=== PATIENT | male | born 1955 | race Caucasian/White ===

== ENCOUNTER 2019-08-05 08:47 | Day surgery (SDC) | payer OTHER ==
[~2019-08-05 08:47] MED LIST: Lactated Ringers 1,000 ML IV SCH
[2019-08-05] MEDS ORDERED: fentaNYL 100 MCG/2 ML SDV IV ONE (08:48)
[2019-08-05] MEDS ORDERED: Propofol 200 MG/20 ML SDV IV ONE (08:48)
[2019-08-05] MEDS ORDERED: Ondansetron 4 MG/2 ML SDV IV ONE (08:48)
[2019-08-05] MEDS ORDERED: Glycopyrrolate 0.2 MG/ML 2 ML SDV IV ONE (08:48)
[2019-08-05] MEDS ORDERED: Midazolam 1 MG/ML 2 ML SDV IV ONE (08:48)
[2019-08-05] MEDS ORDERED: ceFAZolin 2 GM in Premix Bag 1 BAG IV ONE (10:37)
[2019-08-05] MEDS ORDERED: Lidocaine 1% with EPINEPHrine 1:100,000 20 ML MDV ONE (11:57)
[2019-08-05] MEDS ORDERED: Ondansetron 4 MG/2 ML SDV IVPUSH PRN (12:28)
[2019-08-05] MEDS ORDERED: Morphine 2 MG/ML Syringe IVPUSH PRN (12:28)
[2019-08-05] MEDS ORDERED: Sodium Chloride 0.9% 10 ML Syringe FLUSH PRN (12:35)
[2019-08-05] MEDS ORDERED: LORazepam 1 MG Tab**OWN MED PO PRN (15:28)
[2019-08-05] MEDS ORDERED: DIAZEPAM 5 MG PO PRN (15:39)
[2019-08-05] MEDS ORDERED: Carbidopa/Levodopa 25-100 MG Tab.ER PO SCH (17:00)
[2019-08-05] MEDS: LEVODOPA PO SCH ×3 (17:43→21:05)
[2019-08-05] MEDS: CARBIDOPA PO SCH ×3 (17:43→21:05)
--- NOTE | 2019-08-05 18:03 | OR ---
DATE: 08/05/2019 PREOPERATIVE DIAGNOSIS: Left inguinal hernia. POSTOPERATIVE DIAGNOSIS: Left inguinal hernia. PROCEDURE: Open repair of left indirect inguinal hernia. ANESTHESIA: General. ESTIMATED BLOOD LOSS: Minimum. SPECIMEN: Hernia sac. FINDINGS: Indirect left inguinal hernia. INDICATION FOR PROCEDURE: This is a 64-year-old male who has had bilateral inguinal hernias. He previously had the right side repaired, the left side now is enlarged and symptomatic. PROCEDURE IN DETAIL: After adequate preparation, a transverse incision was made over the left groin and this was taken down to the external abdominal oblique. This was opened in the direction of the fibers to expose the hernia sac in the inguinal canal. The ilioinguinal nerve was identified and traced back up to the anterior superior iliac spine where the nerve was severed at that level. The hernia sac and cord were brought up out of the inguinal canal and the hernia sac dissected free from the cord structures down to the deep inguinal ring. This was then suture ligated, closed. A pre-cut piece of mesh was placed over the groin and sewn in place using 2-0 Prolene suture in a running fashion along the inguinal ligament and interrupted along the rectus sheath. The cord was brought through the keyhole of the mesh and was in adequate position. The lateral tails of the mesh were sewn in place and then closed, sutured to each other to close off the ring. The cord was placed in the inguinal canal. External abdominal oblique and Charity's fascia were closed with Vicryl suture and Monocryl for the skin. [facility] /[id number]
[2019-08-05] MEDS ORDERED: CARBIDOPA PO SCH (21:00)
[2019-08-05] MEDS ORDERED: LEVODOPA PO SCH (21:00)
[2019-08-05] MEDS: AMANTADINE 100 MG PO SCH (21:06)
[2019-08-05] MEDS: Acetaminophen/oxyCODONE 325-5 MG Tab PO PRN (21:11)
[2019-08-06] MEDS: Acetaminophen/oxyCODONE 325-5 MG Tab PO PRN (02:20)
[2019-08-06] MEDS: AMANTADINE 100 MG PO SCH (02:48)
[2019-08-06] MEDS: CARBIDOPA PO SCH ×2 (05:16→08:23)
[2019-08-06] MEDS: LEVODOPA PO SCH ×2 (05:16→08:23)
[2019-08-06 08:06] VITALS: BP 112/61; PULSE 75
--- NOTE | 2019-08-06 08:42 | PCM.SN ---
- Free Text/Narrative Note: Stable POD #1. VSS. Pain controlled. PO good. Wound clean and dry. Can discharge. No restrictions. Only need FU is patient has concerns. Percocet (# 10) given for pain.
== END 2019-08-06 09:35 | disposition home or self-care (01) ==
LOC: DL.SDS 08:47 → DL.MS 12:28 → DL.SDS 08-06 09:35
PROVIDERS: ATTEND Surgery
DX: K40.90 Unilateral inguinal hernia, without obstruction or gangrene, not specified as recurrent (principal)
CPT/HCPCS: 49505; A9270; C1781; J0690; J2250; J2405; J2704; J3010; J3490; J7120

== ENCOUNTER 2020-05-21 11:18 | Emergency (ER) | payer OTHER ==
--- NOTE | 2020-05-21 11:26 | EDM.PDOC ---
ED HPI GENERAL MEDICAL PROBLEM - General Chief Complaint: Gastrointestinal Problem Stated Complaint: parkinsons diarrhea constipation Time Seen by Provider: 05/21/20 11:26 Source of Information: Reports: Patient, RN, RN Notes Reviewed History Limitations: Reports: No Limitations - History of Present Illness INITIAL COMMENTS - FREE TEXT/NARRATIVE: Pt presents to ER with c/o constipation and having loose watery stools that he believes is passing around the hard stool since yesterday. Has had similar problem in the past. He states his Parkinson medications cause constipation, but he cannot go without taking them. Denies current abdominal pain. He admits to some nausea on/off, but not currently. He does admit to abdominal cramping associated with urges to have BMs. Denies fever, cough, or any COVID exposures. Onset: Gradual Duration: Constant, Getting Worse Location: Reports: Abdomen Quality: Reports: Other (Cramping) Severity: Moderate Improves with: Reports: None Worsens with: Reports: None Associated Symptoms: Reports: No Other Symptoms - Related Data Allergies Allergy/AdvReac Type Severity Reaction Status Date / Time No Known Allergies Allergy Verified 05/21/20 11:37 Home Meds: Home Meds Carbidopa/Levodopa [Carbidopa-Levo ER 50-200 Tab] 50 - 200 mg PO QID 04/01/16 [History] Carbidopa/Levodopa [Carbidopa-Levodopa 25-250] 25 - 250 mg PO .5TIMESDAILY 04/01/16 [History] LORazepam 1 - 2 tab PO .NIGHTLY PRN 04/01/16 [History] Pramipexole [Mirapex] 1 tab PO TID 04/01/16 [History] Aspirin [Halfprin] 81 mg PO DAILY 04/30/16 [History] Multivitamin [Multi-Day Vitamins] 1 tab PO DAILY 04/30/16 [History] Sildenafil [Viagra] 100 mg PO DAILY 04/30/16 [History] amantadine HCL [Amantadine] 100 mg PO TID 04/30/16 [History] diazePAM [Valium] 10 mg PO BEDTIME 08/03/19 [History] Past Medical History HEENT History: Reports: Other (See Below) Other HEENT History: READING GLASSES Cardiovascular History: Reports: High Cholesterol, Hypertension Respiratory History: Reports: None Gastrointestinal History: Reports: Other (See Below) Other Gastrointestinal History: INGUINAL HERNIA left. Genitourinary History: Reports: None [employer] History: Musculoskeletal History: Reports: Back Pain, Chronic, Fracture, Other (See Below) Other Musculoskeletal History: LEFT WRIST FRACTURE; BUNION LEFT Neurological History: Reports: Parkinson's, Speech Problems Psychiatric History: Reports: None Endocrine/Metabolic History: Reports: None Hematologic History: Reports: Other (See Below) Other Hematologic History: HYPOKALEMIA Immunologic History: Reports: None Oncologic (Cancer) History: Reports: None Dermatologic History: Reports: None - Infectious Disease History Infectious Disease History: Reports: Chicken Pox, Measles, Mumps - Past Surgical History Head Surgeries/Procedures: Reports: None HEENT Surgical History: Reports: Tonsillectomy Cardiovascular Surgical History: Reports: None GI Surgical History: Reports: Colonoscopy, Hernia Repair/Other Other GI Surgeries/Procedures: HX OF RIGHT SIDE INGUINAL HERNIA REPAIR Male Surgical History: Reports: None Musculoskeletal Surgical History: Reports: None Social & Family History - Family History HEENT: Reports: Cataract Cardiac: Reports: None Respiratory: Reports: None GI: Reports: None : Reports: Renal Calculus OBGYN: Reports: None Musculoskeletal: Reports: Fibromyalgia Neurological: Reports: CVA, Parkinson's Psychiatric: Reports: None Endocrine/Metabolic: Reports: Diabetes, type II Hematologic: Reports: None Immunologic: Reports: None Dermatologic: Reports: None Oncologic: Reports: None - Caffeine Use Caffeine Use: Reports: Soda Caffeine Use Comment: 1 can daily - Living Situation & Occupation Living situation: Reports: , with Spouse Occupation: Disabled ED ROS GENERAL - Review of Systems Review Of Systems: Comprehensive ROS is negative, except as noted in HPI. ED EXAM, GI/ABD - Physical Exam Exam: See Below Exam Limited By: No Limitations General Appearance: Alert, No Apparent Distress, Other (Chronically ill appearing) Eyes: Bilateral: Normal Appearance (No scleral icterus) Ears: Hearing Grossly Normal Throat/Mouth: Normal Inspection, Normal Voice, No Airway Compromise Head: Atraumatic, Normocephalic Respiratory/Chest: No Respiratory Distress, Lungs Clear Cardiovascular: Regular Rate, Rhythm GI/Abdominal Exam: Soft, Non-Tender, No Distention, No Abnormal Bruit, No Mass, Abnormal Bowel Sounds (Mildly hyperactive). No: Guarding, Rigid (Male) Exam: Deferred Rectal (Males) Exam: Deferred Back Exam: Normal Inspection Extremities: Normal Inspection Neurological: Alert, Oriented, Other (Tremor consistent with Hx of Parkinsons disease) Psychiatric: Normal Mood Skin Exam: Warm, Dry, Intact, Normal Color Course - Vital Signs Last Recorded V/S: Last Vital Signs Temp 98.1 F 05/21/20 11:38 Pulse 81 05/21/20 11:38 Resp 18 05/21/20 11:38 BP 95/47 L 05/21/20 11:38 Pulse Ox 97 05/21/20 11:38 - Orders/Labs/Meds Orders: Active Orders 24 hr Category Date Time Status Enema [RC] ASDIRECTED Care 05/21/20 12:19 Active Meds: Medications Discontinued Medications Generic Name Dose Route Start Last Admin Trade Name Freq PRN Reason Stop Dose Admin Bisacodyl 10 mg 05/21/20 12:18 05/21/20 12:47 Dulcolax PO 05/21/20 12:19 10 mg ONETIME ONE Administration Lactulose 30 gm 05/21/20 12:19 05/21/20 12:26 Cephulac PO 05/21/20 12:20 30 gm ONETIME ONE Administration Magnesium Citrate 148 ml 05/21/20 14:29 05/21/20 14:57 Citrate Of Magnesia PO 05/21/20 14:30 148 ml ONETIME ONE Administration - Radiology Interpretation Free Text/Narrative:: [facility] Final Radiology Report Call: [phone] assistance Online chat: [email or web address] Name: IRVING VELAZQUEZ Age: 65Years M Date: 05/21/2020 SSN: -- : 1955 Study: CR ABDOMEN 2V AP UPRIGHT DECUB Requesting Physician: CHRISTY RAHMAN Images: 4 Addl Studies: Provided Clinical History: suspected constipation Contrast: Contrast Medium: Contrast Amount: Contrast Method: CONFIDENTIALITY STATEMENT This report is intended only for use by the referring physician, and only in accordance with law. If you received this in error, call [phone]. Page 1 of 1 PROCEDURE INFORMATION: Exam: XR Abdomen, 2 Views Exam date and time: 05/21/2020 11:58 AM Age: 65 years old Clinical indication: Constipation; Additional info: Suspected constipation TECHNIQUE: Imaging protocol: XR of the abdomen. Views: 2 Views. COMPARISON: No relevant prior studies available. FINDINGS: Gastrointestinal tract: Will moderate amount of stool is present within the colon. Mild constipation is possible. No obstruction identified. Intraperitoneal space: Normal. No free air. Bones/joints: Unremarkable for age. IMPRESSION: Mild constipation without obstruction. Thank you for allowing us to participate in the care of your patient. Dictated and Authenticated by: Chandler Bowman MD 05/21/2020 12:17 PM Central Time ([place] & [place]) Departure - Departure Time of Disposition: 15:35 Disposition: Home, Self-Care 01 Condition: Good Clinical Impression: Constipation Qualifiers: Constipation type: unspecified constipation type Qualified Code(s): K59.00 - Constipation, unspecified - Discharge Information *PRESCRIPTION DRUG MONITORING PROGRAM REVIEWED*: Not Applicable *COPY OF PRESCRIPTION DRUG MONITORING REPORT IN PATIENT DOROTEO: Not Applicable Instructions: Constipation, Adult, [id number] Forms: ED Department Discharge Additional Instructions: Drink half bottle of Magnesium Citrate this evening at 7:00PM if you have not had a bowel movement by then. May repeat and drink the second half bottle in the morning (May.22) if needed. Rx: Lactulose Syrup for future as needed use for constipation. Follow up with your primary doctor if constipation continues to be a problem. Sepsis Event Note (ED) - Focused Exam Vital Signs: Vital Signs Temp Pulse Resp BP Pulse Ox 05/21/20 11:38 98.1 F 81 18 95/47 L 97 - My Orders Last 24 Hours: My Active Orders 05/21/20 12:19 Enema [RC] ASDIRECTED - Assessment/Plan Last 24 Hours: My Active Orders 05/21/20 12:19 Enema [RC] ASDIRECTED
[2020-05-21 11:40] VITALS: BP 95/47; PULSE 81
--- NOTE | 2020-05-21 12:17 | CR ---
PROCEDURE INFORMATION: Exam: XR Abdomen, 2 Views Exam date and time: 05/21/2020 11:58 AM Age: 65 years old Clinical indication: Constipation; Additional info: Suspected constipation TECHNIQUE: Imaging protocol: XR of the abdomen. Views: 2 Views. COMPARISON: No relevant prior studies available. FINDINGS: Gastrointestinal tract: Will moderate amount of stool is present within the colon. Mild constipation is possible. No obstruction identified. Intraperitoneal space: Normal. No free air. Bones/joints: Unremarkable for age. IMPRESSION: Mild constipation without obstruction.
[2020-05-21] MEDS ORDERED: Bisacodyl 5 MG Tab PO ONE (12:18)
[2020-05-21] MEDS ORDERED: Lactulose Soln 10 GM/15 ML 30 ML UD Cup PO ONE (12:19)
[2020-05-21] MEDS ORDERED: Magnesium Citrate Solution 296 ML Bottle PO ONE ×2 (14:29→15:37)
== END 2020-05-21 15:55 | disposition home or self-care (01) ==
LOC: DL.ED 11:18
DX: K59.03 Drug induced constipation (principal); T50.905A Adverse effect of unspecified drugs, medicaments and biological substances, initial encounter; I10 Essential (primary) hypertension; G20 Parkinson's disease; Z79.899 Other long term (current) drug therapy; Z79.82 Long term (current) use of aspirin
CPT/HCPCS: 74021; 99283; A9270

== ENCOUNTER 2023-01-25 19:15 | Emergency (ER) | payer MEDICARE, BC ==
[2023-01-25 20:01] VITALS: BP 124/73; PULSE 68
[2023-01-25] MEDS ORDERED: Lidocaine 1% 5 ML VIAL INJECT ONE (20:05)
[2023-01-25] MEDS ORDERED: Bacitracin Oint 1 GM U/D Packet TOP ONE (20:05)
[2023-01-25] MEDS ORDERED: Diphtheria,Pertussis(Acell),Tetanus Vaccine 0.5 ML Syringe IM ONE (20:06)
== END 2023-01-25 20:59 | disposition home or self-care (01) ==
LOC: DL.ED 19:15
DX: S01.81XA Laceration without foreign body of other part of head, initial encounter (principal); Z23 Encounter for immunization; Z86.16 Personal history of COVID-19; Z79.899 Other long term (current) drug therapy; W01.198A Fall on same level from slipping, tripping and stumbling with subsequent striking against other object, initial encounter; Y92.009 Unspecified place in unspecified non-institutional (private) residence as the place of occurrence of the external cause
CPT/HCPCS: 12011; 90471; 90715; 99282; 99283; A9270; J3490

== ENCOUNTER 2024-04-08 09:41 | Inpatient (IN) | payer MEDICARE, BC ==
[2024-04-08 10:29] LABS: BASOPHILS PERCENT AUTO 0.1 % (0.0-1.0); EOSINOPHILS PERCENT AUTO 0.2 % (1.0-3.0); HEMATOCRIT 33.2 % (40.0-54.0); HEMOGLOBIN 10.5 g/dL (14.0-18.0); LYMPHOCYTES PERCENT AUTO 6.2 % (20.5-50.1); MEAN CORPUSCULAR HEMOGLOBIN 31.8 pg (27.0-34.0); MEAN CORPUSCULAR HGB CONC 31.6 g/dL (33.0-35.0); MEAN CORPUSCULAR VOLUME 100.6 fL (80-100); MONOCYTES PERCENT AUTO 9.9 % (2-8); NEUTROPHILS PERCENT AUTO 83.6 % (42.2-75.2); PLATELET COUNT,PLT 269 10^3/uL (150-450)
[2024-04-08 10:47] LABS: INR 1.1 (0.9-1.2); PROTHROMBIN TIME 11.2 SEC (9.0-12.0)
[2024-04-08 10:49] LABS: ALBUMIN 2.5 g/dL (3.4-5.0); ALKALINE PHOSPHATASE 54 U/L (46-116); ANION GAP 8.2 mEq/L (7-13); ASPARTATE AMNIOTRANSFERASE,AST 12 U/L (15-37); BILIRUBIN TOTAL 0.8 mg/dL (0.2-1.0); BLOOD UREA NITROGEN,BUN 28 mg/dL (7-18); BUN/CREATININE RATIO 28.9 (No establ ref range); C-REACTIVE PROTEIN 16.08 ng/dL (<=0.50); CALCIUM 8.3 mg/dL (8.5-10.1); CARBON DIOXIDE,CO2 33 mmol/L (21-32); CHLORIDE,CL 101 mmol/L (98-107); CREATININE 0.97 mg/dL (0.70-1.30); GLUCOSE RANDOM 105 mg/dL (70-99); POTASSIUM,K 4.2 mmol/L (3.5-5.1); SODIUM,NA 138 mmol/L (136-145)
[2024-04-08 10:52] LABS: A/G RATIO 0.56; ALANINE AMINOTRANSFERASE,ALT < 6 U/L (16-63); ESTIMATED GFR 86 mL/min (>=60)
[2024-04-08 10:55] LABS: B-TYPE NATRIURETIC PEPTIDE,BNP 239 pg/ml (0-100)
[2024-04-08] MEDS: Sodium Chloride 0.9% 500 ML IV ONE (11:08)
[2024-04-08] MEDS: ceFAZolin 2 GM Vial IVPUSH ONE (11:08)
[2024-04-08] MEDS: Iopamidol 612 MG/ML 100 ML Bottle IVPUSH ONE (11:59)
[2024-04-08] MEDS ORDERED: Magnesium Hydroxide 400 MG/5 ML Susp 30 ML Cup PO PRN (13:38)
[2024-04-08] MEDS ORDERED: Bisacodyl 5 MG Tab PO PRN (13:38)
[2024-04-08] MEDS ORDERED: Ondansetron 4 MG/2 ML SDV IVPUSH PRN (13:38)
[2024-04-08] MEDS ORDERED: Albuterol/Ipratropium 3.0-0.5 MG/3 ML Neb Soln NEB PRN (13:38)
[2024-04-08] MEDS ORDERED: Melatonin 3 MG Tab PO PRN (13:38)
[2024-04-08] MEDS ORDERED: HYDROmorphone 0.5 MG/0.5 ML Syringe IVPUSH PRN (13:38)
[2024-04-08] MEDS ORDERED: Naloxone 2 MG/2 ML Syringe IVPUSH PRN (13:38)
[2024-04-08] MEDS ORDERED: Polyethylene Glycol 3350 Powder 17 GM Packet PO PRN (13:38)
[2024-04-08] MEDS ORDERED: Acetaminophen/oxyCODONE 325-5 MG Tab PO PRN (13:38)
[2024-04-08] MEDS ORDERED: Sodium Chloride 0.9% 100 ML IV PRN (14:19)
[2024-04-08] MEDS: Albumin Human 25 GM in Premix Bag 1 BAG IV SCH (14:34)
[2024-04-08] MEDS: Cefepime 2 GM Vial IVPUSH ONE (14:36)
[2024-04-08 14:40] LABS: APPEARANCE,URINE CLEAR (CLEAR); BILIRUBIN,URINE NEGATIVE (NEGATIVE); COLOR,URINE YELLOW (YELLOW); GLUCOSE,URINE NEGATIVE (NEGATIVE); KETONES,URINE 15 (NEGATIVE); LEUKOCYTE ESTERASE,URINE NEGATIVE (NEGATIVE); NITRITE,URINE NEGATIVE (NEGATIVE); OCCULT BLOOD,URINE NEGATIVE (NEGATIVE); PROTEIN,URINE 30 (NEGATIVE)
[2024-04-08 15:22] LABS: BACTERIA,URINE RARE /HPF (0-FEW/HPF); EPITHELIAL CELLS,URINE RARE /HPF (NOT SEEN); MUCUS,URINE OCCASIONAL /LPF (NOT SEEN); RBC,URINE 0-5 /HPF (0-5); WBC,URINE 0-5 /HPF (0-5/HPF)
[2024-04-08] MEDS ORDERED: Carbidopa/Levodopa 25-100 MG Tab PO SCH (15:23)
[2024-04-08] MEDS: Carbidopa/Levodopa 25-100 MG Tab PO SCH ×3 (16:08→21:25)
[2024-04-08] MEDS ORDERED: Divalproex Sodium Delayed-Release 250 MG Tab.CR PO SCH (18:00)
[2024-04-08] MEDS: Sodium Chloride 0.9% 10 ML Syringe FLUSH PRN (21:24)
[2024-04-08] MEDS: Acetaminophen 325 MG Tab PO PRN (21:25)
[2024-04-08] MEDS: Saccharomyces Boulardii (Probiotic) 250 MG Cap PO SCH (21:25)
[2024-04-08] MEDS: Divalproex Sodium Delayed-Release 250 MG Tab.CR PO SCH (21:26)
[2024-04-08] MEDS: Bacitracin/Neomycin/Polymyxin B Oint 28.4 GM Tube TOP SCH (21:26)
[2024-04-08] MEDS: Sodium Chloride 0.9% 100 ML IV PRN (23:30)
[2024-04-09] MEDS: Cefepime 2 GM Vial IVPUSH SCH (01:41)
[2024-04-09] MEDS: Carbidopa/Levodopa 25-100 MG Tab PO SCH ×2 (04:49→10:56)
[2024-04-09 06:48] LABS: BASOPHILS PERCENT AUTO 0.2 % (0.0-1.0); EOSINOPHILS PERCENT AUTO 3.3 % (1.0-3.0); HEMATOCRIT 27.3 % (40.0-54.0); HEMOGLOBIN 8.6 g/dL (14.0-18.0); LYMPHOCYTES PERCENT AUTO 11.3 % (20.5-50.1); MEAN CORPUSCULAR HEMOGLOBIN 31.6 pg (27.0-34.0); MEAN CORPUSCULAR HGB CONC 31.5 g/dL (33.0-35.0); MEAN CORPUSCULAR VOLUME 100.4 fL (80-100); MONOCYTES PERCENT AUTO 7.5 % (2-8); NEUTROPHILS PERCENT AUTO 77.7 % (42.2-75.2); PLATELET COUNT,PLT 240 10^3/uL (150-450); RED BLOOD CELL COUNT 2.72 10^6/uL (4.6-6.2); WHITE BLOOD CELL COUNT,WBC 6.4 10^3/uL (5.0-10.0)
[2024-04-09 07:11] LABS: ALBUMIN 2.6 g/dL (3.4-5.0); ANION GAP 10.6 mEq/L (7-13); BILIRUBIN TOTAL 0.7 mg/dL (0.2-1.0); C-REACTIVE PROTEIN 13.58 ng/dL (<=0.50); CALCIUM 7.8 mg/dL (8.5-10.1); CREATININE 0.75 mg/dL (0.70-1.30); EST CRCL DRUG DOSING (CG) 101.61 mL/min; MAGNESIUM 1.9 mg/dL (1.8-2.4); POTASSIUM,K 3.6 mmol/L (3.5-5.1)
[2024-04-09 07:12] LABS: A/G RATIO 0.76
[2024-04-09] MEDS: Magnesium Oxide 400 MG Tab PO SCH (08:10)
[2024-04-09] MEDS ORDERED: Enoxaparin 30 MG/0.3 ML Syringe SUBCUT SCH (09:00)
[2024-04-09] MEDS: Donepezil 10 MG Tab PO SCH (09:20)
[2024-04-09] MEDS: Aspirin 81 MG Tab.EC PO SCH (09:20)
[2024-04-09] MEDS: Oxybutynin 5 MG Tab.ER PO SCH (09:20)
[2024-04-09] MEDS: Multivitamin Tab PO SCH (09:20)
[2024-04-09] MEDS: Enoxaparin 40 MG/0.4 ML Syringe SUBCUT SCH (09:28)
[2024-04-09] MEDS: Iopamidol 755 Mg/ML 100 ML Bottle IVPUSH ONE (13:51)
[2024-04-09] MEDS: Sodium Chloride 0.9% 1,000 ML IV SCH (14:23)
[2024-04-09] MEDS: Furosemide 40 MG/4 ML VIAL IVPUSH ONE (20:27)
[2024-04-10 06:41] LABS: EOSINOPHILS PERCENT AUTO 10.7 % (1.0-3.0); HEMATOCRIT 29.7 % (40.0-54.0); HEMOGLOBIN 9.4 g/dL (14.0-18.0); LYMPHOCYTES PERCENT AUTO 11.4 % (20.5-50.1); MEAN CORPUSCULAR HEMOGLOBIN 31.4 pg (27.0-34.0); MEAN CORPUSCULAR HGB CONC 31.6 g/dL (33.0-35.0); MEAN CORPUSCULAR VOLUME 99.3 fL (80-100); MONOCYTES PERCENT AUTO 9.1 % (2-8); NEUTROPHILS PERCENT AUTO 68.8 % (42.2-75.2); PLATELET COUNT,PLT 264 10^3/uL (150-450); RED BLOOD CELL COUNT 2.99 10^6/uL (4.6-6.2)
[2024-04-10 07:06] LABS: ALBUMIN 3.2 g/dL (3.4-5.0); ANION GAP 8.2 mEq/L (7-13); BILIRUBIN TOTAL 0.7 mg/dL (0.2-1.0); BUN/CREATININE RATIO 20.5 (No establ ref range); C-REACTIVE PROTEIN 9.15 ng/dL (<=0.50); CREATININE 0.73 mg/dL (0.70-1.30); EST CRCL DRUG DOSING (CG) 104.39 mL/min; POTASSIUM,K 3.2 mmol/L (3.5-5.1); PROTEIN TOTAL,TP 6.6 g/dL (6.4-8.2)
[2024-04-10 07:16] LABS: A/G RATIO 0.94
[2024-04-10] MEDS: Potassium Chloride 10 MEQ Tab.ER PO ONE (10:56)
[2024-04-11 06:41] LABS: BASOPHILS PERCENT AUTO 0.2 % (0.0-1.0); EOSINOPHILS PERCENT AUTO 13.9 % (1.0-3.0); HEMATOCRIT 29.8 % (40.0-54.0); HEMOGLOBIN 9.5 g/dL (14.0-18.0); LYMPHOCYTES PERCENT AUTO 14.6 % (20.5-50.1); MEAN CORPUSCULAR HEMOGLOBIN 31.7 pg (27.0-34.0); MEAN CORPUSCULAR HGB CONC 31.9 g/dL (33.0-35.0); MEAN CORPUSCULAR VOLUME 99.3 fL (80-100); MONOCYTES PERCENT AUTO 9.4 % (2-8); NEUTROPHILS PERCENT AUTO 61.9 % (42.2-75.2); PLATELET COUNT,PLT 262 10^3/uL (150-450); WHITE BLOOD CELL COUNT,WBC 4.7 10^3/uL (5.0-10.0)
[2024-04-11 07:36] LABS: A/G RATIO 1.1; ALBUMIN 3.6 g/dL (3.4-5.0); ANION GAP 8.6 mEq/L (7-13); BILIRUBIN TOTAL 0.7 mg/dL (0.2-1.0); BUN/CREATININE RATIO 25.4 (No establ ref range); C-REACTIVE PROTEIN 5.76 ng/dL (<=0.50); CALCIUM 8.4 mg/dL (8.5-10.1); CREATININE 0.63 mg/dL (0.70-1.30); EST CRCL DRUG DOSING (CG) 120.96 mL/min; MAGNESIUM 2.1 mg/dL (1.8-2.4); POTASSIUM,K 3.6 mmol/L (3.5-5.1); PROTEIN TOTAL,TP 6.9 g/dL (6.4-8.2)
[2024-04-11] MEDS: Furosemide 20 MG/2 ML VIAL IVPUSH ONE (10:28)
[2024-04-12 06:34] LABS: BASOPHILS PERCENT AUTO 0.2 % (0.0-1.0); EOSINOPHILS PERCENT AUTO 10.8 % (1.0-3.0); HEMATOCRIT 31.7 % (40.0-54.0); HEMOGLOBIN 10.2 g/dL (14.0-18.0); LYMPHOCYTES PERCENT AUTO 16.6 % (20.5-50.1); MEAN CORPUSCULAR HEMOGLOBIN 31.8 pg (27.0-34.0); MEAN CORPUSCULAR HGB CONC 32.2 g/dL (33.0-35.0); MEAN CORPUSCULAR VOLUME 98.8 fL (80-100); MONOCYTES PERCENT AUTO 11.7 % (2-8); NEUTROPHILS PERCENT AUTO 60.7 % (42.2-75.2); PLATELET COUNT,PLT 288 10^3/uL (150-450); RED BLOOD CELL COUNT 3.21 10^6/uL (4.6-6.2); WHITE BLOOD CELL COUNT,WBC 4.7 10^3/uL (5.0-10.0)
[2024-04-12 07:46] LABS: A/G RATIO 1.1; ALBUMIN 3.6 g/dL (3.4-5.0); ANION GAP 9.6 mEq/L (7-13); BILIRUBIN TOTAL 0.6 mg/dL (0.2-1.0); BUN/CREATININE RATIO 25.8 (No establ ref range); C-REACTIVE PROTEIN 4.06 ng/dL (<=0.50); CALCIUM 8.4 mg/dL (8.5-10.1); CREATININE 0.66 mg/dL (0.70-1.30); EST CRCL DRUG DOSING (CG) 115.46 mL/min; MAGNESIUM 2.2 mg/dL (1.8-2.4); POTASSIUM,K 3.6 mmol/L (3.5-5.1); VANCOMYCIN RANDOM 20.2 ug/mL (No Normal Range)
[2024-04-12 12:23] VITALS: BP 127/103; PULSE 45
== END 2024-04-12 14:35 | disposition swing bed (61) | DRG 602 ==
LOC: DL.ED 09:41 → DL.MS 12:49 → DL.ED 12:57
PROVIDERS: ADMIT Internal Medicine; ATTEND Internal Medicine
DX: L03.116 Cellulitis of left lower limb (principal); E43 Unspecified severe protein-calorie malnutrition; F02.83 Dementia in other diseases classified elsewhere, unspecified severity, with mood disturbance; F02.84 Dementia in other diseases classified elsewhere, unspecified severity, with anxiety; Z66 Do not resuscitate; G20.A1 Parkinson's disease without dyskinesia, without mention of fluctuations; E78.00 Pure hypercholesterolemia, unspecified; E86.0 Dehydration; D72.825 Bandemia; I10 Essential (primary) hypertension; E78.5 Hyperlipidemia, unspecified; G31.84 Mild cognitive impairment of uncertain or unknown etiology; D50.9 Iron deficiency anemia, unspecified; R06.89 Other abnormalities of breathing; E88.09 Other disorders of plasma-protein metabolism, not elsewhere classified; M62.50 Muscle wasting and atrophy, not elsewhere classified, unspecified site; B95.4 Other streptococcus as the cause of diseases classified elsewhere; Z87.81 Personal history of (healed) traumatic fracture; Z79.82 Long term (current) use of aspirin; Z79.2 Long term (current) use of antibiotics; Z79.899 Other long term (current) drug therapy; Z86.16 Personal history of COVID-19; Z90.89 Acquired absence of other organs; Z90.49 Acquired absence of other specified parts of digestive tract; Z98.890 Other specified postprocedural states; Z91.81 History of falling; Z68.22 Body mass index [BMI] 22.0-22.9, adult
CPT/HCPCS: 36415; 73701-LT; 75635; 80053; 80202; 81001; 83735; 83880; 85025; 85610; 86140; 87040; 87070; 87077; 96365; 96375; 97161-GP; 97165-GO; 97530-GO; 97530-GP; 99284; 99284-25; A9270-GY; J0690; J0692; J1650; J1940; J3370; J3490; J7030; J7040; J7050; P9047; Q9967

== ENCOUNTER 2024-04-12 09:39 | Inpatient (IN) | payer MEDICARE, BC ==
[2024-04-12] MEDS ORDERED: Ondansetron 4 MG/2 ML SDV IVPUSH PRN (13:59)
[2024-04-12] MEDS ORDERED: Sodium Chloride 0.9% 10 ML Syringe FLUSH PRN (13:59)
[2024-04-12] MEDS ORDERED: Naloxone 2 MG/2 ML Syringe IVPUSH PRN (13:59)
[2024-04-12] MEDS ORDERED: HYDROmorphone 0.5 MG/0.5 ML Syringe IVPUSH PRN (13:59)
[2024-04-12] MEDS ORDERED: Acetaminophen 325 MG Tab PO PRN (13:59)
[2024-04-12] MEDS ORDERED: Acetaminophen/oxyCODONE 325-5 MG Tab PO PRN (13:59)
[2024-04-12] MEDS ORDERED: Albuterol/Ipratropium 3.0-0.5 MG/3 ML Neb Soln NEB PRN (13:59)
[2024-04-12] MEDS: Carbidopa/Levodopa 25-100 MG Tab PO SCH ×3 (15:31→21:41)
[2024-04-12] MEDS: Magnesium Oxide 400 MG Tab PO SCH (17:02)
[2024-04-12] MEDS: Divalproex Sodium Delayed-Release 250 MG Tab.CR PO SCH (21:41)
[2024-04-12] MEDS: Saccharomyces Boulardii (Probiotic) 250 MG Cap PO SCH (21:42)
[2024-04-12] MEDS: Bacitracin/Neomycin/Polymyxin B Oint 28.4 GM Tube TOP SCH (21:46)
[2024-04-12] MEDS: Sodium Chloride 0.9% 10 ML Syringe FLUSH SCH (21:46)
[2024-04-13] MEDS: Carbidopa/Levodopa 25-100 MG Tab PO SCH (05:13)
[2024-04-13] MEDS: Oxybutynin 5 MG Tab.ER PO SCH (08:38)
[2024-04-13] MEDS: Aspirin 81 MG Tab.EC PO SCH (08:38)
[2024-04-13] MEDS: Donepezil 10 MG Tab PO SCH (08:38)
[2024-04-13] MEDS: Multivitamin Tab PO SCH (08:39)
[2024-04-13] MEDS: Enoxaparin 40 MG/0.4 ML Syringe SUBCUT SCH (08:40)
[2024-04-13] MEDS: Sodium Chloride 0.9% 100 ML IV PRN (11:02)
[2024-04-13] MEDS: cefTRIAXone 2 GM Vial IV SCH (13:03)
[2024-04-14 06:59] LABS: CREATININE 0.71 mg/dL (0.70-1.30); EST CRCL DRUG DOSING (CG) 109.92 mL/min
[2024-04-15] MEDS: Polyethylene Glycol 3350 Powder 17 GM Packet PO PRN (11:14)
[2024-04-15] MEDS: Sodium Chloride 0.9% 10 ML Syringe FLUSH PRN (13:44)
[2024-04-17] MEDS: Magnesium Hydroxide 400 MG/5 ML Susp 30 ML Cup PO PRN (09:00)
[2024-04-17] MEDS: Bisacodyl 5 MG Tab PO PRN (19:05)
[2024-04-17] MEDS: Melatonin 3 MG Tab PO PRN (20:41)
[2024-04-19 06:00] LABS: BASOPHILS PERCENT AUTO 0.3 % (0.0-1.0); EOSINOPHILS PERCENT AUTO 7.7 % (1.0-3.0); HEMATOCRIT 31.8 % (40.0-54.0); HEMOGLOBIN 9.9 g/dL (14.0-18.0); LYMPHOCYTES PERCENT AUTO 21.6 % (20.5-50.1); MEAN CORPUSCULAR HEMOGLOBIN 31.7 pg (27.0-34.0); MEAN CORPUSCULAR HGB CONC 31.1 g/dL (33.0-35.0); MEAN CORPUSCULAR VOLUME 101.9 fL (80-100); MONOCYTES PERCENT AUTO 9.4 % (2-8); PLATELET COUNT,PLT 251 10^3/uL (150-450); RED BLOOD CELL COUNT 3.12 10^6/uL (4.6-6.2); WHITE BLOOD CELL COUNT,WBC 6.8 10^3/uL (5.0-10.0)
[2024-04-19 06:44] LABS: ALBUMIN 3.3 g/dL (3.4-5.0); BILIRUBIN TOTAL 0.3 mg/dL (0.2-1.0); BUN/CREATININE RATIO 31.6 (No establ ref range); CALCIUM 8.5 mg/dL (8.5-10.1); CREATININE 0.76 mg/dL (0.70-1.30); EST CRCL DRUG DOSING (CG) 102.69 mL/min; PROTEIN TOTAL,TP 7.2 g/dL (6.4-8.2)
[2024-04-19 06:48] LABS: A/G RATIO 0.85
[2024-04-19] MEDS: Docusate Sodium 100 MG Cap PO SCH (21:18)
[2024-04-23] MEDS: Nystatin Topical Powder 60 GM Bottle TOP SCH (13:15)
[2024-04-26 06:23] LABS: HEMATOCRIT 32.2 % (40.0-54.0); MEAN CORPUSCULAR HEMOGLOBIN 31.4 pg (27.0-34.0); MEAN CORPUSCULAR HGB CONC 31.1 g/dL (33.0-35.0); MEAN CORPUSCULAR VOLUME 101.3 fL (80-100); RED BLOOD CELL COUNT 3.18 10^6/uL (4.6-6.2); WHITE BLOOD CELL COUNT,WBC 5.4 10^3/uL (5.0-10.0)
[2024-04-26 06:38] LABS: ANION GAP 10.7 mEq/L (7-13); CALCIUM 8.6 mg/dL (8.5-10.1); CREATININE 0.74 mg/dL (0.70-1.30); EST CRCL DRUG DOSING (CG) 106.83 mL/min; POTASSIUM,K 3.7 mmol/L (3.5-5.1)
[2024-04-26 08:03] VITALS: BP 142/80; PULSE 63
== END 2024-04-26 17:20 | disposition home or self-care (01) | DRG 602 ==
LOC: DL.MS 14:00 → UNDOADMIN 15:09
PROVIDERS: ADMIT Internal Medicine; ATTEND Internal Medicine
DX: L03.116 Cellulitis of left lower limb (principal); E43 Unspecified severe protein-calorie malnutrition; F02.83 Dementia in other diseases classified elsewhere, unspecified severity, with mood disturbance; F02.84 Dementia in other diseases classified elsewhere, unspecified severity, with anxiety; R53.81 Other malaise; I10 Essential (primary) hypertension; Z66 Do not resuscitate; E78.5 Hyperlipidemia, unspecified; M54.9 Dorsalgia, unspecified; G89.29 Other chronic pain; G20.A1 Parkinson's disease without dyskinesia, without mention of fluctuations; R29.6 Repeated falls; B95.4 Other streptococcus as the cause of diseases classified elsewhere; D50.9 Iron deficiency anemia, unspecified; R26.89 Other abnormalities of gait and mobility; E88.09 Other disorders of plasma-protein metabolism, not elsewhere classified; Z98.890 Other specified postprocedural states; Z79.82 Long term (current) use of aspirin; Z79.899 Other long term (current) drug therapy; Z87.81 Personal history of (healed) traumatic fracture; Z86.16 Personal history of COVID-19; Z90.49 Acquired absence of other specified parts of digestive tract; Z90.89 Acquired absence of other organs; Z87.891 Personal history of nicotine dependence; Z68.20 Body mass index [BMI] 20.0-20.9, adult
CPT/HCPCS: 36415; 80048; 80053; 82565; 85025; 85027; 87040; 97110-GO; 97110-GP; 97116-GP; 97161-GP; 97166-GO; 97530-GO; 97530-GP; 99306; 99309; 99316; A9270-GY; J0696; J1650; J3370; J3490; J7050